=== PATIENT | male | born 1960 | race Caucasian/White ===

== ENCOUNTER 2016-12-08 06:39 | Emergency (ER) | payer MEDICAID, OTHER ==
[2016-12-08 06:48] VITALS: RESP 20
--- NOTE | 2016-12-08 08:04 | C.PDOC ---
History Of Present Illness 56 y/o male presents to ED with complaints of itchy rash to neck and arms for 2 days. Patient states he was working in the yard and might have touched poison kenzie accidentally. Patient reports using Eliza PO and Caladryl lotion with no improvement. Patient denies sob, tongue or lips swelling, fever, chills, nausea , vomiting. Time Seen by Provider: 12/08/16 07:19 Chief Complaint (Nursing): Abnormal Skin Integrity History Per: Patient History/Exam Limitations: no limitations Onset/Duration Of Symptoms: Days Current Symptoms Are (Timing): Still Present Location Of Injury: Left: Arm, Neck Quality Of Symptoms: Itching Severity: Mild Past Medical History Reviewed: Historical Data, Nursing Documentation, Vital Signs Vital Signs: Last Vital Signs Temp 97.9 F 12/08/16 08:50 Pulse 56 L 12/08/16 08:50 Resp 20 12/08/16 08:50 BP 136/90 12/08/16 08:50 Pulse Ox 100 12/08/16 09:40 - Medical History PMH: Anxiety, Asthma Family History: States: No Known Family Hx - Social History Hx Alcohol Use: No Hx Substance Use: No - Immunization History Hx Tetanus Toxoid Vaccination: (up to date as of 6 months) Review Of Systems Except As Marked, All Systems Reviewed And Found Negative. Constitutional: Negative for: Fever, Chills Respiratory: Negative for: Cough, Shortness of Breath Gastrointestinal: Negative for: Nausea, Vomiting Skin: Positive for: Rash Neurological: Negative for: Weakness, Numbness Physical Exam - Physical Exam Appears: Well, Non-toxic, Other (mildly uncomfortable, scratching at arms ) Skin: Warm, Dry, Rash (left lateral neck and left arm, erythematous rash with papules in linear arrangement, non vesicular and blanching) Head: Normacephalic Eye(s): bilateral: Normal Inspection Oral Mucosa: Moist Tongue: Normal Appearing, No Swelling Lips: Normal Appearing, No Swelling Throat: Normal, No Erythema, No Exudate, No Drooling Cardiovascular: Rhythm Regular Respiratory: Normal Breath Sounds, No Rales, No Rhonchi, No Wheezing Neurological/Psych: Oriented x3 ED Course And Treatment O2 Sat by Pulse Oximetry: 100 (RA) Pulse Ox Interpretation: Normal Progress Note: Patient given PO Prednisone and Benadryl. Rxs given for prednisone, benadryl and hydrocortison cream, and patient instructed to follow up with PMD/clinic in 1-2 days. He understands he should return to ED if symptoms worsen. Reevaluation Time: 08:15 Reassessment Condition: Improved Disposition Counseled Patient/Family Regarding: Diagnosis, Need For Followup, Rx Given - Disposition Referrals: [facility] [Outside] Disposition: HOME/ ROUTINE Disposition Time: 08:15 Condition: STABLE Additional Instructions: FOLLOW UP WITH YOUR DOCTOR/CLINIC USE MEDICATIONS DIRECTED RETURN TO ER IF SYMPTOMS WORSEN Prescriptions: DiphenhydrAMINE [Benadryl] 25 mg PO Q6 PRN #15 cap PRN Reason: Itching / Pruritus Hydrocortisone 1% Cream [Cortizone 1% Cream] 1 appl TP TID #1 tube predniSONE [predniSONE Tab] 40 mg PO DAILY #8 tab Instructions: Poison Kenzie (ED) Forms: [employer] ([place]) - Clinical Impression Clinical Impression: Contact dermatitis, Poison kenzie dermatitis - PA / POLO COACH / Resident Statement MD/DO has examined the patient and agrees with the treatment plan. - Scribe Statement The provider has reviewed the documentation as recorded by the Shikhaibzachariah Gonzales All medical record entries made by the Jerome were at my direction and personally dictated by me. I have reviewed the chart and agree that the record accurately reflects my personal performance of the history, physical exam, medical decision making, and the department course for this patient. I have also personally directed, reviewed, and agree with the discharge instructions and disposition.
[2016-12-08 08:51] VITALS: BP 136/90; PULSE 56; TEMP 97.9
[2016-12-08 09:35] VITALS: O2SAT 100
== END 2016-12-08 08:51 | disposition home or self-care (01) ==
LOC: C.ER 06:39
DX: L23.7 Allergic contact dermatitis due to plants, except food (principal)

== ENCOUNTER 2017-01-03 06:04 | Emergency (ER) | payer OTHER ==
[2017-01-03 06:28] VITALS: RESP 18; TEMP 98
--- NOTE | 2017-01-03 07:52 | C.PDOC ---
History Of Present Illness 56 y/o male with Hx of ETOH abuse and bronchitis presents to ED with complaints of body aches, cough and sore throat for 3 days. Patient states he was recently seen at ed for bronchitis and given prednisone with no relief. Patient reports he tried breathing treatment at home with no improvement. Patient denies fever, chills, n/v/d or any other complaints at this time. Time Seen by Provider: 01/03/17 07:21 Chief Complaint (Nursing): Flu-like Symptoms History Per: Patient History/Exam Limitations: no limitations Onset/Duration Of Symptoms: Days Current Symptoms Are (Timing): Still Present Associated Symptoms: Sore Throat, Cough Severity: Mild Past Medical History Reviewed: Historical Data, Nursing Documentation, Vital Signs Vital Signs: Last Vital Signs Temp 98.0 F 01/03/17 06:21 Pulse 80 01/03/17 09:34 Resp 18 01/03/17 09:34 BP 143/92 H 01/03/17 09:34 Pulse Ox 98 01/03/17 09:34 - Medical History PMH: Anxiety, Asthma Surgical History: No Surg Hx Family History: States: No Known Family Hx - Social History Hx Alcohol Use: No Hx Substance Use: No - Immunization History Hx Tetanus Toxoid Vaccination: Yes (up to date as of 6 months) Hx Influenza Vaccination: No Hx Pneumococcal Vaccination: No Review Of Systems Except As Marked, All Systems Reviewed And Found Negative. Constitutional: Negative for: Fever, Chills ENT: Positive for: Throat Swelling Cardiovascular: Negative for: Chest Pain Respiratory: Positive for: Cough Gastrointestinal: Negative for: Nausea, Vomiting Skin: Negative for: Rash Neurological: Negative for: Weakness, Numbness Physical Exam - Physical Exam Appears: Non-toxic, No Acute Distress Skin: Normal Color, Warm, Dry, No Rash Head: Atraumatic, Normacephalic Eye(s): bilateral: Normal Inspection Oral Mucosa: Moist Throat: Normal, No Erythema, No Exudate Neck: Normal ROM, Supple Chest: Symmetrical Cardiovascular: Rhythm Regular, No Murmur Respiratory: Normal Breath Sounds, No Rales, No Rhonchi, No Wheezing Gastrointestinal/Abdominal: Soft, No Tenderness, No Guarding, No Rebound Neurological/Psych: Oriented x3 Gait: Steady ED Course And Treatment O2 Sat by Pulse Oximetry: 100 (RA) Pulse Ox Interpretation: Normal Progress Note: treated with decadron 10 mg PO and duoneb. On re-evaluation lung clear. Rapid Strep (-). On re-evaluation lungs clear Reassessment Condition: Improved Medical Decision Making Medical Decision Making: Plan: * 1 breathing treatment * Strep test * Decadron PO * Motrin Disposition Counseled Patient/Family Regarding: Diagnosis, Need For Followup - Disposition Referrals: [facility] [Outside] [facility] [Outside] Disposition: HOME/ ROUTINE Disposition Time: 09:30 Condition: STABLE Additional Instructions: Follow up with clinic or PMD for further evaluation Return to ED if any increase symptoms Instructions: Upper Respiratory Infection (ED), Cold Symptoms (ED) Forms: [employer] ([place]adian) Print Language: GERMAN - POA Present On Arrival: None - Clinical Impression Clinical Impression: Upper respiratory infection - PA / SEISMOGRAPH OBSERVER / Resident Statement MD/DO has reviewed & agrees with the documentation as recorded. - Scribe Statement The provider has reviewed the documentation as recorded by the Shikhaibzachariah Gonzales All medical record entries made by the Shikhaibzachariah were at my direction and personally dictated by me. I have reviewed the chart and agree that the record accurately reflects my personal performance of the history, physical exam, medical decision making, and the department course for this patient. I have also personally directed, reviewed, and agree with the discharge instructions and disposition.
[2017-01-03] MEDS ORDERED: Albuterol-Ipratrop 3 mg / 0.5 (3 ml) UD ONE (08:02)
[2017-01-03] MEDS: Albuterol-Ipratrop 3 mg / 0.5 (3 ml) UD IH SCH ×2 (08:05→08:25)
[2017-01-03 09:36] VITALS: BP 143/92; PULSE 80
[2017-01-03 15:47] VITALS: O2SAT 100
== END 2017-01-03 09:35 | disposition home or self-care (01) ==
LOC: C.ER 06:04
DX: J06.9 Acute upper respiratory infection, unspecified (principal); J45.909 Unspecified asthma, uncomplicated
CPT/HCPCS: 87070; 87430; 94150; 94640; 99284; J8540